=== PATIENT | female | born 1930 | race Caucasian/White ===

== ENCOUNTER 2017-02-12 12:38 | Day surgery (SDC) | payer MEDICARE, OTHER ==
--- NOTE | ~2017-02-12 | EGD ---
EGD REPORT [facility] [address] [place] [id number] NAME: PAIGE HAWKINS : [birth year] STATUS : [place] [facility] PAT#: [id number] AGE: 86 ADM/REG DATE : 02/12/17 MR#: [id number] REPORT SERV DATE: 02/12/17 DICTATED BY: SARA NARAYANAN DATE: 02/12/17 REPORT STATUS : Draft TRANSCRIBED BY: [facility] DATE: 02/12/17 [facility] Patient Name: Paige Hawkins Date of : 1930 Attending MD: SARA NARAYANAN MD Procedure Date No Time: 02/12/2017 Procedure: Upper GI endoscopy Indications: Dysphagia, Chest pain (non cardiac) Referring MD: MAKENNA MICHAEL Medicines: Propofol per Anesthesia Complications: No immediate complications. Estimated blood loss: None. Procedure: Pre-Anesthesia Assessment: - After reviewing the risks and benefits, the patient was deemed in satisfactory condition to undergo the procedure. - Prior to the procedure, a History and Physical was performed, and patient medications and allergies were reviewed. The patient's tolerance of previous anesthesia was also reviewed. The risks and benefits of the procedure and the sedation options and risks were discussed with the patient. All questions were answered, and informed consent was obtained. Prior Anticoagulants: The patient has taken no previous anticoagulant or antiplatelet agents. ASA Grade Assessment: II - A patient with mild systemic disease. After reviewing the risks and benefits, the patient was deemed in satisfactory condition to undergo the procedure. After obtaining informed consent, the endoscope was passed under direct vision. Throughout the procedure, the patient's blood pressure, pulse, and oxygen saturations were monitored continuously. The GIF [id number] was introduced through the mouth, and advanced to the third part of duodenum. The upper GI endoscopy was accomplished without difficulty. The patient tolerated the procedure well. Findings: A mild Schatzki ring (acquired) was found at the gastroesophageal junction. A guidewire was placed and the scope was withdrawn. Dilation was performed with a Savary dilator with mild resistance at 48 Fr. Estimated blood loss: none. A 2 cm hiatus hernia was present. Diffuse moderate inflammation characterized by erythema and granularity was found in the gastric antrum. Biopsies were taken with a cold forceps for histology. Estimated blood loss: none. EGD REPORT [address] [address] NAME: PAIGE HAWKINS : [birth year] STATUS : [place] [facility] [place] PAT#: [id number] AGE: 86 ADM/REG DATE : 02/12/17 MR#: [id number] REPORT SERV DATE: 02/12/17 DICTATED BY: SARA NARAYANAN DATE: 02/12/17 REPORT STATUS : Draft TRANSCRIBED BY: [email or web address] DATE: 02/12/17 The gastroesophageal junction (on retroflexion) was normal. A large diverticulum was found in the third part of the duodenum. Biopsies were taken with a cold forceps for histology. Estimated blood loss: none. Impression: - Mild Schatzki ring. Dilated. - Hiatus hernia. - Gastritis. Biopsied. - Normal gastroesophageal junction. - Duodenal diverticulum. - GERD with atypical chest pain. Recommendation: - Discharge patient to home (ambulatory). - Advance diet as tolerated. - Continue present medications. - Increase Prilosec (omeprazole) to 20 mg twice daily before breakfast and supper. - Await pathology results. - Return to GI clinic PRN. - Patient has a contact number available for emergencies. The signs and symptoms of potential delayed complications were discussed with the patient. Return to normal activities tomorrow. Written discharge instructions were provided to the patient. Procedure Code(s): --- Professional --- 00833, Esophagogastroduodenoscopy, flexible, transoral; with insertion of guide wire followed by passage of dilator(s) through esophagus over guide wire 48366, Esophagogastroduodenoscopy, flexible, transoral; with biopsy, single or multiple Diagnosis Code(s): --- Professional --- K22.2, Esophageal obstruction K44.9, Diaphragmatic hernia without obstruction or gangrene K29.70, Gastritis, unspecified, without bleeding K57.10, Diverticulosis of small intestine without perforation or abscess without bleeding K21.9, Gastro-esophageal reflux disease without esophagitis R13.10, Dysphagia, unspecified R07.89, Other chest pain CPT copyright 2013 [employer]. All rights reserved. EGD REPORT [facility] [address] [address] NAME: PAIGE HAWKINS : [birth year] STATUS : [place] [facility] [place] PAT#: [id number] AGE: 86 ADM/REG DATE : 02/12/17 MR#: [id number] REPORT SERV DATE: 02/12/17 DICTATED BY: SARA NARAYANAN. DATE: 02/12/17 REPORT STATUS : Draft TRANSCRIBED BY: [email or web address] DATE: 02/12/17 The codes documented in this report are preliminary and upon financial foundations associate review may be revised to meet current compliance requirements. SARA NARAYANAN MD 02/12/2017 2:15 PM This report has been signed electronically. Number of Addenda: 0 Note Initiated On: 02/12/2017 1:46 PM Scope Withdrawal Time 0 hours 0 minutes 0 seconds [address] [address]
[~2017-02-12 12:38] MED LIST: ACEON4 MG OR; ADVAIR250 INH; ADVIL PO; ASAB PO; BEN25 PO; CA/MAG/ZINC PO; CELEBREX2 PO; FISH-EPA1000 MG PO; I-CAP VITAMIN PO; IBU400 PO; LOP50 PO; MAX25 PO; MOBIC7.5 PO; OSTEO BI-FLEX1 EACH PO; OSTEOBIFLEX PO; PRILO PO; PRINZIDE1 TAB PO; PROAIR HFA INH; PROVHFA INH; TRILIPIX135 MG PO; VITAMIN B-122500 MCG SL; VITAMIN D1000 UNI1 PO; ZIAC2 PO; [UNRECOGNIZED DRUG - OTHER] PO
== END 2017-02-12 23:59 | disposition home health service (06) ==
LOC: DMU 12:38
PROVIDERS: Internal Medicine Gastroenterology
PROC: 0DB68ZX Excision of Stomach, Via Natural or Artificial Opening Endoscopic, Diagnostic (ICD-10-PCS; 2017-02-12)
PROC: 0D748ZZ Dilation of Esophagogastric Junction, Via Natural or Artificial Opening Endoscopic (ICD-10-PCS; principal; 2017-02-12 14:15)
PROC: 0DB98ZX Excision of Duodenum, Via Natural or Artificial Opening Endoscopic, Diagnostic (ICD-10-PCS; 2017-02-12 14:15)
DX: K29.50 Unspecified chronic gastritis without bleeding (principal); K21.0 Gastro-esophageal reflux disease with esophagitis; K22.2 Esophageal obstruction; K57.10 Diverticulosis of small intestine without perforation or abscess without bleeding; K44.9 Diaphragmatic hernia without obstruction or gangrene; E11.9 Type 2 diabetes mellitus without complications; I10 Essential (primary) hypertension; J45.909 Unspecified asthma, uncomplicated; M19.90 Unspecified osteoarthritis, unspecified site; Z90.49 Acquired absence of other specified parts of digestive tract; Z98.890 Other specified postprocedural states; Z90.710 Acquired absence of both cervix and uterus
CPT/HCPCS: 82962; 88305